=== PATIENT | male | born 2005 | race Caucasian/White ===

== ENCOUNTER 2024-01-18 20:49 | Outpatient (CLI) | payer BC, SELFPAY | END 2024-01-18 20:50 | disposition home or self-care (01) | PROVIDERS: Visit Provider Family Medicine | DX: S09.90XA Unspecified injury of head, initial encounter (principal); R11.0 Nausea; V47.1XXA Car passenger injured in collision with fixed or stationary object in nontraffic accident, initial encounter; Y92.410 Unspecified street and highway as the place of occurrence of the external cause | CPT/HCPCS: A0425; A0427 ==

== ENCOUNTER 2024-01-18 21:22 | Emergency (ER) | payer BC, SELFPAY ==
[2024-01-18] VITALS (11 sets, daily range): BP systolic 128–144; BP diastolic 70–81; PULSE 88–104; RESP 14–16; TEMP 36.6; O2SAT 97–99; BMI 20.3
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
[2024-01-18 21:59] LABS: Basophils Absolute Auto 0.03 K/uL (0.00-0.30); Basophils Percent Auto 0.3 % (0.0-3.0); Eosinophils Absolute Auto 0.04 K/uL (0.00-0.50); Eosinophils Percent Auto 0.4 % (0.0-7.0); Hematocrit 39.8 % (37.0-53.0); Hemoglobin* 13.4 gm/dL (13.5-17.5); Immature Granulocytes Abs Auto 0.07 K/uL (0.00-0.30); Immature Granulocytes Pct Auto 0.8 %; Lymphocytes Absolute Auto 2.45 K/uL (0.90-2.90); Lymphocytes Percent Auto 26.6 % (20-44); Mean Corpuscular HGB Conc 34 gm/dL (32-36); Mean Corpuscular Hemoglobin 29 pg (26-34); Mean Corpuscular Volume 85 fL (80-100); Monocytes Percent Auto 5.1 % (0.0-11.0); Neutrophils Absolute Auto 6.15 K/uL (1.7-7.0); Neutrophils Percent Auto 66.8 % (42.0-72.0); Platelet Count* 327 K/uL (140-440); RDW Coefficient of Variation % 12.1 % (11.5-15.5); Red Blood Count 4.66 m/uL (4.30-5.90); White Blood Count* 9.21 K/uL (4.50-11.00)
[2024-01-18 22:03] LABS: Slide Review Reflex No
[2024-01-18 22:10] LABS: Chloride* 104 mmol/L (96-114); Potassium* 3.2 mmol/L (3.6-5.1); Sodium* 141 mmol/L (135-149)
[2024-01-18 22:13] LABS: Anion Gap 16 mEq/L (7-15); Blood Urea Nitrogen* 13 mg/dL (5-24); Carbon Dioxide* 21 mmol/L (20-32); Creatinine* 0.8 mg/dL (0.6-1.2); Est. Creatinine Clearance* 142.93; Estimated Glomerular Filt Rate 131 ml/min; Ethanol* 0.24 % (0.01-0.03)
[2024-01-18 22:14] LABS: Glucose* 97 mg/dL (60-115)
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
== END 2024-01-18 23:15 | disposition home or self-care (01) ==
PROVIDERS: Emergency Provider Family Medicine
DX: S09.90XA Unspecified injury of head, initial encounter (principal); F10.129 Alcohol abuse with intoxication, unspecified; V49.88XA Car occupant (driver) (passenger) injured in other specified transport accidents, initial encounter
CPT/HCPCS: 36415; 70450; 72125; 80048; 80306; 81001; 82077; 85025; 94761; 99291; G0390